=== PATIENT | female | born 2005 | race Caucasian/White ===

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

== ENCOUNTER 2024-05-30 14:29 | Outpatient (REF) | payer BC, MEDICAID, SELFPAY ==
[2024-05-30 14:43] LABS: MANUAL DIFF FLAG NO
[2024-05-30 15:14] LABS: Basophils Percent Auto 0.4 % (0-2); Eosinophils Absolute Auto 0.1 X10*3/uL (0.0-0.4); Eosinophils Percent Auto 1.5 % (0-4); Hematocrit 40.7 % (37.0-47.0); Hemoglobin 13.8 g/dl (12.0-16.0); Imm Gran Abs Auto 0.01 X10*3/uL (0.00-0.03); Imm Gran Pct Auto 0.2 % (0.0-0.4); Lymphocytes Absolute Auto 1.7 X10*3/uL (1.2-4.9); Lymphocytes Percent Auto 31.7 % (20-40); Mean Corpuscular HGB Conc 33.9 g/dl (31.0-35.0); Mean Corpuscular Hemoglobin 29.5 pg (27.0-33.0); Mean Platelet Volume 9.4 fL (9.4-12.3); Monocytes Absolute Auto 0.3 X10*3/uL (0.1-1.2); Monocytes Percent Auto 5.9 % (2-11); Neutrophils Absolute Auto 3.3 x10*3/uL (2.0-8.3); Neutrophils Percent Auto 60.3 % (45-73); Platelet Count 269 X10*3/uL (160-400); Red Blood Count 4.68 X10*6/uL (4.20-5.50); White Blood Count 5.4 X10*3/uL (4.8-10.8)
[2024-05-30 15:15] LABS: Appearance Urine Clear; Color Urine Yellow; Glucose Urine UA Negative (Negative); Leukocyte Esterase Urine Trace (Negative); Nitrite Urine Negative (Negative); Specific Gravity - Urine 1.015 (1.005-1.025); UMIC TRIGGER UACC YES; Urine Blood Negative (Negative); Urine Ketones Negative (Negative); Urine Protein Negative (Neg-Trace)
[2024-05-30 15:20] LABS: Bacteria Urine None Seen (None Seen); Hyaline Casts Urine 0-2 /LPF (0-2); RBC Urine 0-2 /HPF (0-2); WBC Urine 0-5 /HPF (0-5)
[2024-05-30 15:44] LABS: Alanine Aminotransferase 14 U/L (0-31); Albumin Level 4.2 g/dL (3.5-5.0); Anion Gap 12 (12-20); Aspartate Amino Transferase 19 U/L (5-31); Bilirubin Total 0.4 mg/dL (0.0-1.0); Blood Urea Nitrogen 8 mg/dL (9-16); Carbon Dioxide 21 mmol/L (22-29); Chloride 112 mmol/L (96-108); Cholesterol 197 mg/dL (<200); Estimated Glomerular Filt Rate > 60; Glucose Fasting 84 mg/dL (60-99); HDL Cholesterol 56 mg/dL (>40); LDL Cholesterol Calculated 126 mg/dL (<100); Potassium 3.7 mmol/L (3.3-5.1); Sodium 141 mmol/L (135-145); Total Protein 7.4 g/dL (6.5-8.0); Triglycerides 78 mg/dL (<150)
[2024-05-30 15:59] LABS: TSH reflex Free T4 0.75 uIU/mL (0.32-4.0); Vitamin D 25-OH Total 46.1 ng/mL (>30)
[2024-05-30 16:53] LABS: Alkaline Phosphatase 73 U/L (39-117)
== END 2024-05-30 14:30 | disposition home or self-care (01) ==
LOC: HO.LAB 14:29
PROVIDERS: PCP Internal Medicine; Visit Provider Internal Medicine
DX: Z00.00 Encounter for general adult medical examination without abnormal findings (principal); E78.00 Pure hypercholesterolemia, unspecified; D64.9 Anemia, unspecified; E55.9 Vitamin D deficiency, unspecified
CPT/HCPCS: 36415; 80053; 80061; 81001; 82306; 84443; 85025

== ENCOUNTER 2024-06-01 17:01 | Outpatient (AMB) | payer BC, MEDICAID, SELFPAY ==
[2024-06-01 17:04] VITALS: BP 120/78; PULSE 86; O2SAT 99; BMI 28.1
--- NOTE | 2024-06-01 17:04 | MHC.PC.OV ---
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 Accompanied by: Self / Same As Patient Allergies amoxicillin Allergy (Unknown, Verified 06/01/24 17:15) Rash PCN Allergy (Unknown, Uncoded 06/01/24 17:15) Rash Medication List - Last Reconciled 06/01/24 by Eh De Leon MD albuterol sulfate 90 mcg/actuation 2 puffs inhalation Q4-6H PRN cholecalciferol (vitamin D3) 50 mcg PO DAILY 90 days etonogestrel (Nexplanon) subdermal fexofenadine (Jacklyn Allergy) 180 mg PO DAILY ibuprofen 200 mg PO Q6H PRN Tobacco use date assessed: 06/01/24 Dental Screening Dental Screen Date: 06/01/24 Did you have a dental visit in the last 12 months?: No Did you have a dental problem in the last 6 months where you did not have access to dental care?: No Was dental information given to patient?: No HPI PHYSICAL HPI Details Patient comes in today for her annual physical examination States that she feels okay She denies any headaches or dizziness Denies any exertional chest pains or increased shortness of breath but reports that she has experienced occasional sharp chest pains that she thinks occurred when she was vaping She thinks that these were mostly when she was using certain Flavors but does not remember exactly which ones led to the sharp chest pains No nausea/vomiting, no abdominal pain No change in bowel habits noted She denies any acute urinary symptoms Needs her Albuterol inhaler Rx refilled She had her follow-up labs done a couple of days ago - to discuss her results She is up-to-date with yearly gynecology exam and pap smear - she is scheduled for her next yearly exam [place] [facility] [place] [facility]25 [facility] Medical History Allergic rhinitis Pure hypercholesterolemia Vitamin D deficiency Obesity (BMI 30-39.9) PTSD (post-traumatic stress disorder) Depression Mild intermittent asthma Surgical History History of lingual frenulectomy Family History Mother Anxiety and depression Asthma Sister Anxiety and depression Asthma Father Alcohol abuse Substance use disorder Social History Household Members: Family Household Members Other:: lives with mother. no contact with dad Housing: Apartment Alcohol intake: current Alcohol intake frequency: holidays/special occasions only Patient Tobacco Use Status: Never used Tobacco e-Cigarette/Vaping Use: Currently Using Substance Use Type: Marijuana service: No Current occupational status: employed Current occupation: [employer], and part-time [employer] Current occupational exposures/hazards: No Sexual orientation: Straight/Heterosexual Gender identity: Female Cognitive needs: No Hearing needs: No Vision needs: No Female Reproductive History Menstrual Age of Menarche: 11 Questionnaire PHQ-9 Over the last 2 weeks, how often have you been bothered by any of the following problems? 1. Little interest or pleasure in doing things: several days 2. Feeling down, depressed, or hopeless: not at all 3. Trouble falling or staying asleep, or sleeping too much: not at all 4. Feeling tired or having little energy: not at all 5. Poor appetite or overeating: not at all 6. Feeling bad about yourself - or that you are a failure or have let yourself or your family down: not at all 7. Trouble concentrating on things, such as reading the newspaper or watching television: not at all 8. Moving or speaking so slowly that other people could have noticed. Or the opposite - being so fidgety or restless that you have been moving around a lot more than usual: not at all 9. Thoughts that you would be better off or of hurting yourself in some way: not at all Total score: 1 Depression Screening Interpretation: Negative Depression Screening Done: Yes 94008 - PHQ-9 Billing: Yes Source: Developed by Drs. Regino Persaud, Joycelyn Fox, Bobby Humphries and colleagues, with an educational denise from [employer]. Thrive Questionnaire Date Thrive assessed: 06/01/24 I am a: Patient What is your living situation today?: I have a steady place to live Within the past 12 months, did the food you bought not last and you didn't have the money to get more?: Never true Within the past 12 months, did you worry whether your food would run out before you got money to buy more?: Never true Do you have trouble paying for medicines?: No Do you have trouble getting transportation to medical appointments?: No Do you have trouble paying your heating and electricity bill?: No Do you have trouble taking care of your child, family member or friend?: No Do you have trouble with day-to-day activities such as bathing, preparing meals, shopping, managing finances, etc.?: No Are you currently unemployed and looking for a job?: No Are you interested in more education?: I choose not to answer this question Please select the resources that you would like help with: None Currently or been in a relationship where the following occur: No concerns reported THRIVE Score: 0 AUDIT C Alcohol Use Questionnaire (AUDIT-C) 1. How often do you have a drink containing alcohol?: Monthly or less 2. How many drinks containing alcohol do you have on a typical day when you are drinking?: 1 or 2 3. How often do you have six or more drinks on one occasion?: Less than monthly Total Score: 2 Score Reviewed/Action Taken: Yes BOB-7 AMB Questionnaire BOB-7 Date BOB - 7 assessed: 06/01/24 Feeling nervous, anxious, or on edge: 1 = Several days Not being able to stop or control worryin = Not at all Worrying too much about different things: 1 = Several days Trouble relaxin = Not at all Being so restless that it is hard to sit still: 0 = Not at all Becoming easily annoyed or irritable: 1 = Several days Feeling afraid as if something awful might happen: 0 = Not at all Total BOB-7 score (0-4 normal; 5-9 mild; 10-14 moderate; 15-21 severe): 3 Source: Developed by Drs. Regino Persaud, Joycelyn Fox, Bobby Humphries and colleagues, with an educational denise from [employer]. Review of Systems Const Denies chills, Reports difficulty sleeping (mostly due to the baby that her sister just recently had), Denies fatigue, Denies fever(s), Denies headache(s) and Denies malaise Eyes Denies blurry vision, Denies change in vision, Denies irritation and Denies itchy eyes ENT Denies dysphagia, Denies dizziness, Denies otalgia, Denies headache(s), Denies nasal congestion, Denies neck pain, Denies odynophagia, Denies sinus pain and Denies sore throat Card Reports chest pain (occasionally - see HPI for details), Denies chest pain with activity, Denies rapid heart rate, Denies irregular heart rhythm, Denies palpitations and Denies dyspnea Resp Denies chest congestion, Denies cough, Denies dyspnea and Denies wheezing GI Denies abdominal pain, Denies bloating, Denies constipation, Denies dysphagia, Denies heartburn, Denies diarrhea, Denies nausea, Denies odynophagia and Denies vomiting Denies hematuria, Denies urinary frequency, Denies dysuria, Denies urinary incontinence and Denies urinary urgency Musc Denies back pain, Denies arthralgias, Denies joint swelling, Denies muscle weakness and Denies neck pain Skin/Breast Denies breast pain, Denies breast mass, Denies change in pigmentation, Denies lesions, Denies rash and Denies unusual bruising Neuro Denies dizziness, Denies headache(s) and Denies paresthesias Psych Denies anxiety and Denies depression Endo Denies fatigue and Denies palpitations Pavel/Lymph Denies easy bruising Aller/Immun Denies itchy eyes and Denies wheezing Physical exam (Primary Care) Vital Signs: Last Vital Signs Pulse 86 06/01/24 17:04 BP 120/78 06/01/24 17:04 Pulse Ox 99 06/01/24 17:04 Oxygen Delivery Method Room Air 06/01/24 17:04 BMI result Body Mass Index 28.1 Tobacco/Smoking Status: Tobacco use Status Tobacco use date assessed 06/01/24 06/01/24 17:10 Patient Tobacco Use Status Never used Tobacco 06/01/24 17:10 e-Cigarette/Vaping Use Currently Using 06/01/24 17:10 PHQ-9: PHQ-9 Score PHQ-9: Total score 1 06/02/24 05:04 Depression Screening Interpretation: Negative Thrive Assessment: Date of Thrive Assessment Date Thrive assessed 06/01/24 06/01/24 17:10 Currently or been in a relationship where the following occur: No concerns reported Const General: no acute distress, alert and awake Orientation/consciousness: patient oriented x3 HENMT Head: Yes normocephalic and Yes atraumatic Ears: external ears normal, TM's normal bilaterally and EAC's normal General nose exam: No nasal discharge present Face and sinus: Yes normal facial exam and Yes sinuses nontender Teeth and gingiva: dentition normal Throat: Yes posterior oropharynx normal and Yes tonsils normal (no TP congestion) Eyes Eyelids: Yes eyelids normal Conjunctivae: conjunctivae normal Pupils: Equal, round and reactive pupils present EOM: EOMs intact bilaterally Neck Neck: Yes no lymphadenopathy and Yes supple Thyroid: Thyroid normal Resp Auscultation: clear to auscultation bilaterally, no rales and no wheezes Cardio Rate: regular rate Rhythm: regular rhythm Heart sounds: no murmurs GI Palpation (GI): Soft to palpation, nontender and No hepatosplenomegaly present Auscultation: normal bowel sounds General: Yes no CVA tenderness Back/Spine/Pelvis Back: no CVA tenderness Thoracic/Lumbar Spine: thoracic and lumbar spine normal to inspection Skin Lesions: no lesions Rashes: no rashes Neuro General: patient oriented x3, moves all extremities, no focal motor deficits and CN's II-XI intact bilaterally Cranial nerves: Yes Equal, round and reactive pupils present Cognition (Neuro): normal cognition Gait exam (Neuro): Normal gait present Extrem General: Yes no clubbing, cyanosis or edema Results Reviewed Results Reviewed: Laboratory Tests 05/30/24 05/30/24 14:34 14:42 WBC 5.4 Hgb 13.8 Hct 40.7 Plt Count 269 Sodium 141 Potassium 3.7 Creatinine 0.78 Estimated GFR > 60 Fasting Glucose 84 Calcium 9.0 D AST 19 ALT 14 Triglycerides 78 Cholesterol 197 LDL Cholesterol, Calc 126 H HDL Cholesterol 56 25-OH Vitamin D Total 46.1 TSH 0.75 Ur Specific Dahlgren 1.015 Urine Protein Negative Urine Glucose (UA) Negative Urine Blood Negative Urine Nitrite Negative Ur Leukocyte Esterase Trace H Coding Level of Care Code Est Pt Prev Care 18-39y([id number]) Diagnoses Annual physical exam Z00.00 Mild intermittent asthma without complication J45.20 Asthma complication type: uncomplicated Allergic rhinitis, unspecified seasonality, unspecified trigger J30.9 Allergic rhinitis seasonality: unspecified Allergic rhinitis trigger: unspecified Pure hypercholesterolemia E78.00 Vitamin D deficiency E55.9 Engages in vaping Z72.89 Obesity (BMI 30-39.9) E66.9 Additional Codes PHQ-9 - 57711 - PHQ-9 Billing: Yes ([id number]) Assessment & Plan Assessment & Plan (1) Annual physical exam: Code(s): Z00.00 - Encounter for general adult medical examination without abnormal findings Category: Medical Plan: Results of her labs done a couple of days ago reviewed and discussed with patient She is up-to-date with yearly gynecologic exam and Pap smear (2) Mild intermittent asthma: Comment: mostly exercise-induced Code(s): J45.20 - Mild intermittent asthma, uncomplicated Category: Medical Qualifiers: Asthma complication type: uncomplicated Qualified Code(s): J45.20 - Mild intermittent asthma, uncomplicated Plan: Patient states that she's had exercise/activity-induced asthma for years Continue Albuterol HFA 1-2 inhalations PRN - states that she mostly just uses her rescue inhaler before any exercise or physical activity (3) Allergic rhinitis: Code(s): J30.9 - Allergic rhinitis, unspecified Category: Medical Qualifiers: Allergic rhinitis seasonality: unspecified Allergic rhinitis trigger: unspecified Qualified Code(s): J30.9 - Allergic rhinitis, unspecified Plan: Continue Fexofenadine 180 mg QD PRN (4) Pure hypercholesterolemia: Code(s): E78.00 - Pure hypercholesterolemia, unspecified Category: Medical Plan: Patient is advised that her total cholesterol level has improved slightly from a year ago (has dropped from 224 mg/dL to 197 mg/dL) Her LDL cholesterol level is borderline high at 126 mg/dL Discussed low-cholesterol diet (5) Vitamin D deficiency: Code(s): E55.9 - Vitamin D deficiency, unspecified Category: Medical Plan: Corrected - continue Vitamin D3 2000 units QD (6) Engages in vaping: Code(s): Z72.89 - Other problems related to lifestyle Category: Medical Plan: Patient reports that she uses vapes mostly so she does not smoke cigarettes Have advised patient she may not be smoking cigarettes but vaping can be just as bad, especially if she is vaping different Flavors Discussed with patient that her occasional sharp chest pains that occurred when she was vaping is likely due to a reaction to some of the ingredients associated with different flavors of vapes Have explained that in vaping, she is still introducing something into her lungs that should not be there and it can also potentially cause some respiratory/pulmonary problems in the long run, especially since she has asthma as well, and she is strongly encouraged to quit JOANNA (7) Obesity (BMI 30-39.9): Code(s): E66.9 - Obesity, unspecified Category: Medical Plan: Reinforced diet/exercise as tolerated/lose weight Plan Follow-up in 6 months Medications: Refilled albuterol sulfate 90 mcg/actuation 2 puffs inhalation Q4-6H PRN 8.5 grams 5RF shortness of breath or wheezing
== END 2024-06-01 17:29 | disposition home or self-care (01) ==
PROVIDERS: PCP Internal Medicine; Visit Provider Internal Medicine
DX: Z00.00 Encounter for general adult medical examination without abnormal findings (principal); Z68.28 Body mass index [BMI] 28.0-28.9, adult; J45.20 Mild intermittent asthma, uncomplicated; J30.9 Allergic rhinitis, unspecified; E78.00 Pure hypercholesterolemia, unspecified; E66.9 Obesity, unspecified; E55.9 Vitamin D deficiency, unspecified; Z72.89 Other problems related to lifestyle

== ENCOUNTER → 2024-06-01 17:01 | Outpatient (BNVA) | payer BC, MEDICAID, SELFPAY | PROVIDERS: PCP Internal Medicine; Visit Provider Internal Medicine | DX: Z00.00 Encounter for general adult medical examination without abnormal findings (principal); J45.20 Mild intermittent asthma, uncomplicated; J30.9 Allergic rhinitis, unspecified; E78.00 Pure hypercholesterolemia, unspecified; E55.9 Vitamin D deficiency, unspecified; E66.9 Obesity, unspecified; Z68.28 Body mass index [BMI] 28.0-28.9, adult; Z79.899 Other long term (current) drug therapy; Z72.89 Other problems related to lifestyle | CPT/HCPCS: 96127 ==

== ENCOUNTER 2024-12-05 16:50 | Outpatient (AMB) | payer BC, MEDICAID, SELFPAY ==
[2024-12-05 16:52] VITALS: BP 120/72; PULSE 97; RESP 18; TEMP 36.3; O2SAT 99; BMI 28.8
--- NOTE | 2024-12-05 16:52 | A.OFFPC_ITS ---
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 Accompanied by: Self / Same As Patient Allergies amoxicillin Allergy (Unknown, Verified 12/05/24 17:22) Rash PCN Allergy (Unknown, Uncoded 12/05/24 17:22) Rash Medication List - Last Reconciled 12/05/24 by Eh De Leon MD albuterol sulfate 90 mcg/actuation 2 puffs inhalation Q4-6H PRN cholecalciferol (vitamin D3) 50 mcg PO DAILY 90 days etonogestrel (Nexplanon) subdermal fexofenadine (Jacklyn Allergy) 180 mg PO DAILY ibuprofen 200 mg PO Q6H PRN naproxen sodium 220 mg PO Q12H PRN Tobacco use date assessed: 12/05/24 Dental Screening Dental Screen Date: 12/05/24 Did you have a dental visit in the last 12 months?: No Did you have a dental problem in the last 6 months where you did not have access to dental care?: No Was dental information given to patient?: No HPI 6 month HPI Details Patient comes in today for her follow-up visit States that she feels okay She denies any headaches or dizziness Denies any chest pains, no shortness of breath - states that her asthma has been well controlled but she is starting to experience some allergy symptoms lately States that she just takes some OTC Jacklyn as needed for allergies No nausea/vomiting, no abdominal pain No change in bowel habits noted Needs her Vitamin D Rx refilled [facility] Medical History (Updated 12/12/24 @ 18:12 by Eh De Leon MD) Overweight (BMI 25.0-29.9) Allergic rhinitis Pure hypercholesterolemia Vitamin D deficiency Obesity (BMI 30-39.9) PTSD (post-traumatic stress disorder) Depression Mild intermittent asthma Surgical History History of lingual frenulectomy Family History Mother Anxiety and depression Asthma Sister Anxiety and depression Asthma Father Alcohol abuse Substance use disorder Social History Household Members: Family Household Members Other:: lives with mother. 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 1. Little interest or pleasure in doing things: several days 2. Feeling down, depressed, or hopeless: not at all 3. Trouble falling or staying asleep, or sleeping too much: not at all 4. Feeling tired or having little energy: not at all 5. Poor appetite or overeating: not at all 6. Feeling bad about yourself - or that you are a failure or have let yourself or your family down: not at all 7. Trouble concentrating on things, such as reading the newspaper or watching television: not at all 8. Moving or speaking so slowly that other people could have noticed. Or the opposite - being so fidgety or restless that you have been moving around a lot more than usual: not at all 9. Thoughts that you would be better off or of hurting yourself in some way: not at all Total score: 1 Depression Screening Interpretation: Negative Depression Screening Done: Yes 33499 - PHQ-9 Billing: Yes Source: Developed by Drs. Regino Persaud, Joycelyn Fox, Bobby Humphries and colleagues, with an educational denise from [employer]. Thrive Questionnaire Date Thrive assessed: 12/05/24 I am a: Patient What is your living situation today?: I have a steady place to live Within the past 12 months, did the food you bought not last and you didn't have the money to get more?: Never true Within the past 12 months, did you worry whether your food would run out before you got money to buy more?: Never true Do you have trouble paying for medicines?: No Do you have trouble getting transportation to medical appointments?: No Do you have trouble paying your heating and electricity bill?: No Do you have trouble taking care of your child, family member or friend?: No Do you have trouble with day-to-day activities such as bathing, preparing meals, shopping, managing finances, etc.?: No Are you currently unemployed and looking for a job?: No Are you interested in more education?: I choose not to answer this question Please select the resources that you would like help with: None Currently or been in a relationship where the following occur: No concerns reported THRIVE Score: 0 AUDIT C Alcohol Use Questionnaire (AUDIT-C) 1. How often do you have a drink containing alcohol?: Monthly or less 2. How many drinks containing alcohol do you have on a typical day when you are drinking?: 1 or 2 3. How often do you have six or more drinks on one occasion?: Less than monthly Total Score: 2 Score Reviewed/Action Taken: Yes BOB-7 AMB Questionnaire BOB-7 Date BOB - 7 assessed: 12/05/24 Feeling nervous, anxious, or on edge: 1 = Several days Not being able to stop or control worryin = Not at all Worrying too much about different things: 1 = Several days Trouble relaxin = Not at all Being so restless that it is hard to sit still: 0 = Not at all Becoming easily annoyed or irritable: 1 = Several days Feeling afraid as if something awful might happen: 0 = Not at all Total BOB-7 score (0-4 normal; 5-9 mild; 10-14 moderate; 15-21 severe): 3 Source: Developed by Drs. Regino Persaud, Joycelyn Fox, Bobby Humphries and colleagues, with an educational denise from [employer]. Review of Systems Const Denies chills, Denies fatigue, Denies fever(s) and Denies headache(s) ENT Denies dysphagia, Denies dizziness, Denies otalgia, Denies headache(s), Denies neck pain, Denies odynophagia and Denies sore throat Card Denies chest pain, Denies palpitations and Denies dyspnea Resp Denies chest congestion, Denies cough and Denies dyspnea GI Denies abdominal pain, Denies constipation, Denies dysphagia, Denies heartburn, Denies diarrhea, Denies nausea, Denies odynophagia and Denies vomiting Denies difficulty voiding, Denies nocturia and Denies dysuria Musc Denies back pain and Denies neck pain Skin/Breast Denies rash Neuro Denies dizziness and Denies headache(s) Endo Denies fatigue and Denies palpitations Aller/Immun Reports seasonal rhinorrhea Physical exam (Primary Care) Vital Signs: Last Vital Signs Temp 97.3 F 12/05/24 16:52 Pulse 97 12/05/24 16:52 Resp 18 12/05/24 16:52 BP 120/72 12/05/24 16:52 Pulse Ox 99 12/05/24 16:52 Oxygen Delivery Method Room Air 12/05/24 16:52 BMI result Body Mass Index 28.8 Tobacco/Smoking Status: Tobacco use Status Tobacco use date assessed 12/05/24 12/05/24 17:01 Patient Tobacco Use Status Never used Tobacco 12/05/24 17:01 e-Cigarette/Vaping Use Currently Using 12/05/24 17:01 PHQ-9: PHQ-9 Score PHQ-9: Total score 1 12/05/24 17:22 Depression Screening Interpretation: Negative Thrive Assessment: Date of Thrive Assessment Date Thrive assessed 12/05/24 12/05/24 17:01 Currently or been in a relationship where the following occur: No concerns reported Const General: no acute distress and alert HENMT Ears: TM's normal bilaterally and EAC's normal Throat: Yes posterior oropharynx normal and Yes tonsils normal (no TP congestion) Neck Neck: Yes no lymphadenopathy and Yes supple Thyroid: Thyroid normal Resp Auscultation: clear to auscultation bilaterally, no rales and no wheezes Cardio Rate: regular rate Rhythm: regular rhythm Heart sounds: no murmurs GI Palpation (GI): Soft to palpation and nontender Auscultation: normal bowel sounds General: Yes no CVA tenderness Back/Spine/Pelvis Back: no CVA tenderness Thoracic/Lumbar Spine: No lumbar spinal tenderness Skin Rashes: no rashes Extrem General: Yes no clubbing, cyanosis or edema Coding Level of Care Code Est Pt Level 4 (92869) Diagnoses Mild intermittent asthma without complication J45.20 Asthma complication type: uncomplicated Allergic rhinitis, unspecified seasonality, unspecified trigger J30.9 Allergic rhinitis trigger: unspecified Allergic rhinitis seasonality: unspecified Pure hypercholesterolemia E78.00 Vitamin D deficiency E55.9 Engages in vaping Z72.89 Overweight (BMI 25.0-29.9) E66.3 Additional Codes PHQ-9 - 91761 - PHQ-9 Billing: Yes ([id number]) Assessment & Plan Assessment & Plan (1) Mild intermittent asthma: Comment: mostly exercise-induced Code(s): J45.20 - Mild intermittent asthma, uncomplicated Category: Medical Qualifiers: Asthma complication type: uncomplicated Qualified Code(s): J45.20 - M ild intermittent asthma, uncomplicated Plan: Patient states that she's had exercise/activity-induced asthma for years Continue Albuterol HFA 1-2 inhalations PRN - states that she mostly just uses her rescue inhaler before any exercise or physical activity (2) Allergic rhinitis: Code(s): J30.9 - Allergic rhinitis, unspecified Category: Medical Qualifiers: Allergic rhinitis trigger: unspecified Allergic rhinitis seasonality: unspecified Qualified Code(s): J30.9 - Allergic rhinitis, unspecified Plan: Continue Fexofenadine 180 mg QD PRN Reports that she has been experiencing increased allergy symptoms lately, likely due to fall allergies (3) Pure hypercholesterolemia: Code(s): E78.00 - Pure hypercholesterolemia, unspecified Category: Medical Plan: Her total cholesterol level has improved slightly from a year ago (has dropped from 224 mg/dL to 197 mg/dL) on her most recent labs Her LDL cholesterol level is still borderline high at 126 mg/dL Reinforced low-cholesterol diet Will have patient recheck her labs and fasting lipids in 6 months for follow-up (4) Vitamin D deficiency: Code(s): E55.9 - Vitamin D deficiency, unspecified Category: Medical Plan: Corrected - continue Vitamin D3 2000 units QD (Rx refilled) (5) Engages in vaping: Code(s): Z72.89 - Other problems related to lifestyle Category: Medical Plan: Patient reports that she uses vapes mostly so she does not smoke cigarettes Have advised patient again that vaping can be just as bad as smoking cigarettes, especially if she is vaping different flavors (6) Overweight (BMI 25.0-29.9): Code(s): E66.3 - Overweight Category: Medical Plan: Reinforced diet/exercise as tolerated/lose weight - she appears to have been able to lose some weight since her last visit Plan To return in 6 months for her next annual physical examination Patient is reminded to try to get her labs done just before she comes in for her next appointment in 6 months Orders: Orders Lipid Panel 6 Months E78.00 - Pure hypercholesterolemia, unspecified, Z00.00 - Encounter for general adult medical examination without abnormal findings TSH reflex Free T4 6 Months E78.00 - Pure hypercholesterolemia, unspecified, Z00.00 - Encounter for general adult medical examination without abnormal findings UA CC w/rflx Micro + Cult 6 Months R30.0 - Dysuria, Z00.00 - Encounter for general adult medical examination without abnormal findings Complete Blood Count Auto Diff 6 Months D64.9 - Anemia, unspecified, Z00.00 - Encounter for general adult medical examination without abnormal findings Comprehensive Thornton. Panel Fast 6 Months E78.00 - Pure hypercholesterolemia, unspecified, Z00.00 - Encounter for general adult medical examination without abnormal findings Vitamin D 25-OH Total 6 Months E55.9 - Vitamin D deficiency, unspecified, Z00.00 - Encounter for general adult medical examination without abnormal findings Medications: Refilled cholecalciferol (vitamin D3) 50 mcg PO DAILY 90 caps 3RF 90 days E55.9 - Vitamin D deficiency, unspecified
== END 2024-12-05 17:27 | disposition home or self-care (01) ==
LOC: HO.HMCH 16:50
PROVIDERS: PCP Internal Medicine; Visit Provider Internal Medicine
DX: J45.20 Mild intermittent asthma, uncomplicated (principal); J30.9 Allergic rhinitis, unspecified; E78.00 Pure hypercholesterolemia, unspecified; E55.9 Vitamin D deficiency, unspecified; Z72.89 Other problems related to lifestyle; E66.3 Overweight

== ENCOUNTER → 2024-12-05 16:50 | Outpatient (BNVA) | payer BC, MEDICAID, SELFPAY | PROVIDERS: PCP Internal Medicine; Visit Provider Internal Medicine | DX: J45.20 Mild intermittent asthma, uncomplicated (principal); J30.9 Allergic rhinitis, unspecified; E78.00 Pure hypercholesterolemia, unspecified; E55.9 Vitamin D deficiency, unspecified; E66.3 Overweight; Z68.28 Body mass index [BMI] 28.0-28.9, adult; Z72.89 Other problems related to lifestyle | CPT/HCPCS: 96127 ==

== ENCOUNTER 2025-01-11 13:30 | Outpatient (REF) | payer BC, SELFPAY | END 2025-01-11 13:31 | disposition home or self-care (01) | LOC: HO.LAB 13:30 | PROVIDERS: PCP Internal Medicine; Visit Provider Advanced Practice Midwife | DX: Z01.419 Encounter for gynecological examination (general) (routine) without abnormal findings (principal); Z32.02 Encounter for pregnancy test, result negative; Z20.2 Contact with and (suspected) exposure to infections with a predominantly sexual mode of transmission | CPT/HCPCS: 81025 ==

== ENCOUNTER 2025-01-11 13:30 | Outpatient (AMB) | payer BC, SELFPAY ==
--- NOTE | 2025-01-11 13:38 | A.OFFVIS_ITS ---
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 Regional Director concerns: Ingrown hair left areola that reccurs. Random bleeding with the Nexplanon device, UPT is negative today. Currently is sexually active. She denies vaginal itching or irritation. STI screening offered; she accepts. She tries to eat healthy and stays active with exercise. Denies family history of breast, ovarian or colon cancer. [facility] Medical History Nexplanon in place Overweight (BMI 25.0-29.9) Allergic rhinitis Pure hypercholesterolemia Vitamin D deficiency Obesity (BMI 30-39.9) PTSD (post-traumatic stress disorder) Depression Mild intermittent asthma Surgical History History of lingual frenulectomy Family History Mother Anxiety and depression Asthma Benign breast lumps Sister Anxiety and depression Asthma Father Alcohol abuse Substance use disorder Maternal Grandfather Brain cancer Maternal Uncle Cancer Family/Other Colon polyp Social History Household Members: Family Household Members Other:: lives with mother. 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 Current occupational exposures/hazards: No Sexual orientation: Straight/Heterosexual Gender identity: Female Cognitive needs: No Hearing needs: No Vision needs: No Female Reproductive History Menstrual Age of Menarche: 11 Date of last menstrual period: 12/23/24 control method: implanted (Nexplanon 01/13/23) Total pregnancies: 0 Review of Systems Const All systems reviewed & are unremarkable except as noted in HPI and below Reports as per HPI Eyes Reports no additional complaints ENT Reports no additional complaints Card Reports no additional complaints Resp Reports no additional complaints GI Reports as per HPI and Reports no additional complaints Reports as per HPI Musc Reports no additional complaints Skin/Breast Reports as per HPI Neuro Reports no additional complaints Psych Reports no additional complaints Endo Reports no additional complaints Pavel/Lymph Reports no additional complaints Aller/Immun Reports no additional complaints Physical Exam Vital Signs: Last Vital Signs BP 132/82 01/11/25 13:40 BMI result Body Mass Index 28.6 Const General: cooperative, healthy appearing, no acute distress, well developed and alert Orientation/consciousness: patient oriented x3 HEENT Head: Yes normal to inspection Eyes General: appearance normal, both eyes and all related structures Neck Neck: Yes normal visual inspection Thyroid: Thyroid normal Chest Chest palpation & inspection: normal inspection of the chest and other (no puckering, dimpling, peau de orange, retraction, discharge, masses) Breast/axilla inspection: normal inspection of the breasts Breast/axilla palpation: normal palpation of the breasts Resp Effort & Inspection: normal respiratory effort GI Inspection: Yes normal to inspection Palpation (GI): Soft to palpation Rectal Exam - Female: deferred General: Yes bladder normal to palpation External Female Exam: normal external appearance and normal appearance of the urethra Speculum Exam - Vagina: normal appearance of the vagina, normal palpation and normal vaginal discharge Speculum Exam - Cervix: normal appearance of the cervix and normal palpation Bimanual exam- vagina & uterus: normal bimanual exam, normal palpation, uterine size normal, bladder normal to palpation, normal palpation and non-tender Bimanual Exam- Adnexa, other: no masses Skin General skin exam: no rashes or lesions noted Rashes: no rashes Neuro General: patient oriented x3 Cognition (Neuro): normal cognition Extrem General: Yes normal to inspection Psych Attitude: cooperative Thought process: Normal thought process present Results AMB Test Urine AMB Test Urine Negative Last Edit by BALTAZAR Infante on 01/11/25 13:52 Results Reviewed Results Reviewed: Laboratory Last Values Tst Clinic Negative 01/11/25 13:51 Assessment & Plan Assessment & Plan (1) Encounter for well woman exam with routine gynecological exam: Code(s): Z01.419 - Encounter for gynecological examination (general) (routine) without abnormal findings Category: Medical Plan Discussed: Current recommendations for pap smears per ASCCP guidelines. Pap smear obtained. GC chlamydia obtained await results for final plan of care. Declines STD blood work. Breast awareness and periodic breast exams. Reassured normal breast exam no concerns with skin findings today, continue observe and report any infections if not resolve with warm compresses. Nexplanon exchange due next January advised to sign consents in November of 2025 to preorder her device for exchange on time. Maintain a healthy lifestyle including a well balanced diet and routine exercise. Use condoms for STI and prevention. Patient verbalizes understanding and agrees to the plan of care. She was given opportunity to ask questions and all questions were answered to the best of my ability. RTO in one year for annual color stripper examination. This note is constructed using voice recognition software. While every effort has been made to ensure accuracy, jewel blocker and sawyer errors may have been included. Orders: Orders AMB HCG Urine Test Today Z32.02 - Encounter for test, result negative Bacterial Vaginosis Panel Today Z20.2 - Contact with and (suspected) exposure to infections with a predominantly sexual mode of transmission CT NG by PCR Vag/Cerv Today Z20.2 - Contact with and (suspected) exposure to infections with a predominantly sexual mode of transmission Pap Smear Today Z01.419 - Encounter for gynecological examination (general) (routine) without abnormal findings Coding Level of Care Code Est Pt Prev Care 18-39y(38331) Diagnoses Encounter for well woman exam with routine gynecological exam Z01.419
[2025-01-11 13:40] VITALS: BP 132/82; BMI 28.6
== END 2025-01-11 14:35 | disposition home or self-care (01) ==
LOC: HO.HWS 13:30
PROVIDERS: PCP Internal Medicine; Visit Provider Advanced Practice Midwife
DX: Z01.419 Encounter for gynecological examination (general) (routine) without abnormal findings (principal); Z32.02 Encounter for pregnancy test, result negative
CPT/HCPCS: 99395; 99459

== ENCOUNTER 2025-01-11 14:26 | Outpatient (REF) | payer BC, SELFPAY ==
[2025-01-12 06:49] LABS: Bacterial Vaginosis PCR NEGATIVE (Negative); Candida Group PCR NOT DETECTED (Not Detect); Candida glab krusei PCR NOT DETECTED (Not Detect); Trichomonas vaginalis PCR NOT DETECTED (Not Detect)
[2025-01-12 07:20] LABS: CT PCR NOT DETECTED (Not Detect.); NG PCR NOT DETECTED (Not Detect.)
== END 2025-01-11 14:27 | disposition home or self-care (01) ==
LOC: HO.LNP 14:26
PROVIDERS: Visit Provider Advanced Practice Midwife
DX: Z01.419 Encounter for gynecological examination (general) (routine) without abnormal findings (principal); Z20.2 Contact with and (suspected) exposure to infections with a predominantly sexual mode of transmission
CPT/HCPCS: 81515; 87491; 87591; 88175